=== PATIENT | female | born 1945 | race Caucasian/White ===

== ENCOUNTER 2021-08-26 10:30 | Outpatient (RCR) | payer MEDICARE, OTHER, SELFPAY ==
--- NOTE | 2021-07-22 14:20 | ST.OPIE ---
Visit Care Team Role Provider Type Samir Mooney MD Family Provider Non-Staff Primary Care Provider Specialty: Medical Address: [address] [facility], [place], [address] Email: Gaurav Young MD Attending Provider Non-Staff Referring Provider Specialty: Ear, Nose, Throat Address: [address] [place] [address], [id number] Email: Speech-Language Pathology Initial Evaluation SYNTHETIC FILAMENT EXTRUDER Voice Resonance Evaluation Start: 07/19/21 10:32 Freq: Status: Active Protocol: Document 07/19/21 10:30 LNK (Rec: 07/22/21 13:17 LNK [email or web address]) Voice and Resonance Assessment Session Time Visit Start Time 10:30 Visit Stop Time 11:30 Total Visit Minutes 60 Visit Information Visit Number 1 Plan of Care Dates 07/19/21-10/19/21 Next Note Type Next Note Type Treatment Note Referral Referring Physician Dr Young, ENT Reason for Referral vocal fold paralysis Setting Setting Outpatient Care Patient History General Information Pt was seen for voice evaluation and treatment secondary to left vocal fold paralysis. Pt underwent thyroidectomy in April 2021. Following her surgery, she developed a large hematoma that resulted in left side laryngeal nerve compression. As a result, the pt was aphonic and experienced swallowing problems. Subjective Subjective Pt presented with a voice judged to be relativey normal. According to the pt, she has noticed a significant improvement in her voice over the past 2 weeks. She also reported that her eating and drinking have also improved. Informal observation indicated mild pitch breaks and fatigue as the pt was providing her medical history. - Laryngeal Performance S/Z Ratio S/Z Ratio 1.2 Functional for Speech Yes Reduced Laryngeal Function Relative to mild reduction Respiration CAPE-V Overall Severity 10 Roughness 0 Breathiness 10 Strain 0 Pitch 5 Loudness 10 Normal Resonance? Yes Additional Features Pitch Instability,Tremor Other Features Observed mild s/sx Maximum Phonation Time MPT Norms: Women (15-25) Men (25-35) Loudness (50-60 dB); Speaking Rate: Oral Reading of Sentences (190 Words Per Minute); Oral Reading of Paragraphs (160-170 WPM); Speaking Rate in Conversation (150-250 WPM) Maximum Phonation Time 13.46 Maximum Phonation Time Adequate for Speech,Reduced Jitter/Shimmer Norms: Jitter (Less than or equal to 1.040% - Frequency) Norms: Shimmer (Less than or equal to 3.810% - Amplitude) Jitter 1.08 Shimmer 3.95 Pitch Haswell Pitch Haswell Pitch Breaks,Reduced Range Pitch [place] Comments 61.4-261.4 Hz Muscle Tension Assessment Muscle Tension Assessment None Tongue Base Tension Tongue Base Tension w/ Voicing No Breath Support Breath Support At Rest Abdominal Breath Support Sustained Phonation Mixed Breath Support Sustained Phonation Initial trial was WNL, 2 Comment consecutive trials = reduced duration each Breath Support Conversation Abdominal Breath Support Conversation Comment Appeared to fatigue as evaluation continued Speaks on Room Air Yes Postural Alignment Stance Balanced Voice Pitch Range Norms: Women (100-300 Hz) Men (70-250 Hz) Fundamental Frequency Norms: Women (Mean: 225 Hz; Range: 155-334 Hz) Men ( Mean: 128 Hz; Range: 85-196 Hz) Voice Pitch Normal Voice Loudness Normal Voice Phonatory-based Quality Pitch Breaks Fundamental Frequency 154-188Hz Paradoxical Vocal Fold Movement No Indications Resonance Nasal Resonance Normal Therapeutic Techniques Therapy Tactics Breath Support Other Tactics Glottal adduction exercises Findings Findings Mild Impairment Voice/Resonance Assessment Assessment Pt presented with a mild voice disorder that, per pt report, has improved significantly over the past 2 weeks. Following her thyroidectomy, pt had a large hematom pressing n the left laryngeal nerve that caused temporary paralysis of the left vocal fold. The results noted above as well as pt's report indicate the reduction of the hematoma has enabled healing of the nerve and evangelical of voicing. Adduction exercises were provided to the pt, who demonstrated them in office. It is expected that her voice, with the adduction exercises, will continue to improve to normal. 1-2 sessions are recommended at 3 weeks apart. Prognosis Rehabilitation Potential Excellent - Recommendations Treatment Recommended Yes Treatment Frequency/Duration every 3 weeks x 1-2 sessions Short Term Goals Pt will perform HEP of glottal adduction exercises 3-5 times per day as prescribed Prison Goals Pt's vocal adduction, and therefore voicing, will be WNL . Swallowing will return to normal as well Referrals Voice/Resonance Other Referral Return to Dr. Young as indicated Patient/Caregiver Education Patient/Family Education Described results of evaluation,Patient Understanding,Patient Demonstration
--- NOTE | 2021-08-05 11:03 | ST.OPTN ---
Visit Care Team Role Provider Type Samir Mooney MD Family Provider Non-Staff Primary Care Provider Address: [address] [facility], [place], [address] Gaurav Young MD Attending Provider Non-Staff Referring Provider Address: [facility] Francesco Gonzalezy [address], [address] HOME THERAPY TEACHER Treatment Note HOME THERAPY TEACHER Treatment Note Start: 07/19/21 10:32 Freq: Status: Active Protocol: Document 08/05/21 10:28 LNK (Rec: 08/05/21 11:03 LNK [id number]) Speech Pathology Treatment Note Session Time Visit Start Time 10:30 Visit Stop Time 11:00 Total Visit Minutes 30 Visit Information Visit Number 2 Plan of Care Dates 07/19/21-10/19/21 Setting Treatment Setting Outpatient Care Visit Type Note Type Treatment Note Next Note Type Next Note Type Treatment Note General Information General Information Pt was seen for voice evaluation and treatment secondary to left vocal fold paralysis. Pt initially presented with a mild voice disorder that, per pt report, has improved significantly over the past 2 weeks. Following her thyroidectomy, pt had a large hematoma pressing on the left laryngeal nerve that caused temporary paralysis of the left vocal fold. The results indicated that the reduction of the hematoma has enabled healing of the nerve and latter day of voicing. Adduction exercises were provided to the pt, who demonstrated them in office. It is expected that her voice, with the adduction exercises, will continue to improve to normal. 1-2 sessions are recommended at 3 weeks apart. [ End ] Subjective Identification Type Name,Date of Chief Complaint(s) Voice Patient Knowledge/Awareness of HOME THERAPY TEACHER Role Excellent in Treatment Objective Short Term Goals Pt will perform HEP of glottal adduction exercises 3-5 times per day as prescribed Proposal Specialist Goals Pt's vocal adduction, and therefore voicing, will be WNL . Swallowing will return to normal as well Treatment Activities Pt reported that she recently saw Dr Young for a follow up visit. Per pt, Dr. Young was pleased that the vocal fold that had been paralyzed had improved significantly and was able to adduct, leaving a slight glottal gap. Pt reported that she was doing her exercises and her voice was improving until she caught a bad cold. She reports she has recovered from the cold, but has regressed in her exercises due to coughing. Assessment Impairments Identified Vocal Quality Progress Towards Goals Good Progress Assessment of Overall Progress Improving Assessment of Improvement Pt's voice has improved despite her recent cough. Recommend a follow up appointment again in 3 weeks. Continue daily vocal fold adduction exercises as tolerated. Reviewed with Patient Goals,Progress Being Made,Home Exercise Program Patient/Caregiver Understanding Excellent Plan Amount of Therapy Recommended 1-2 Months Comment 1 appt every 3 weeks Length of Session 45 Minutes Therapeutic Contents Voice Training Provided Patient/Caregiver Instruction Home Exercise Program, Questions/Concerns Therapy Recommendations Continue with Current Program
--- NOTE | 2021-08-26 11:40 | ST.OPTN ---
Visit Care Team Role Provider Type Samir Mooney MD Family Provider Non-Staff Primary Care Provider Address: [address] [facility], [place], [address] Gaurav Young MD Attending Provider Non-Staff Referring Provider Address: [address] [address], [place], [address] SALES ASSISTANT Treatment Note SALES ASSISTANT Treatment Note Start: 07/19/21 10:32 Freq: Status: Active Protocol: Document 08/26/21 11:07 LNK (Rec: 08/26/21 11:24 LNK [email or web address]) Speech Pathology Treatment Note Session Time Visit Start Time 10:30 Visit Stop Time 11:10 Total Visit Minutes 40 Visit Information Visit Number 3 Plan of Care Dates 07/19/21-10/19/21 Setting Treatment Setting Outpatient Care Visit Type Note Type Treatment Note Next Note Type Next Note Type Treatment Note General Information General Information Pt was seen for voice evaluation and treatment secondary to left vocal fold paralysis. Pt initially presented with a mild voice disorder that, per pt report, has improved significantly over the past 2 weeks. Following her thyroidectomy, pt had a large hematoma pressing on the left laryngeal nerve that caused temporary paralysis of the left vocal fold. The results indicated that the reduction of the hematoma has enabled healing of the nerve and protestant of voicing. Adduction exercises were provided to the pt, who demonstrated them in office. It is expected that her voice, with the adduction exercises, will continue to improve to normal. 1-2 sessions are recommended at 3 weeks apart. [ End ] Subjective Identification Type Name,Date of Chief Complaint(s) Voice Patient Knowledge/Awareness of SALES ASSISTANT Role Excellent in Treatment Objective Short Term Goals Pt will perform HEP of glottal adduction exercises 3-5 times per day as prescribed Manager Utilization Goals Pt's vocal adduction, and therefore voicing, will be WNL . Swallowing will return to normal as well Treatment Activities Pt reported that her cold persisted and she saw her PCP, who thought pt was aspirating and instructed her to bend over while coughing. The pt stated that this movement has helped and that she is much better. Pt reported that she continues doing her adduction exercises and she feels her voice is more like me again. She is pleased with her progress and her voice. Jitter/Shimmer/ vocal glide measurements were taken to document progress. Jitter/shimmer values remained WNL. Pitch glide demonstrated greater flexibility and greater pitch range. Pt reported that she does not expend a lot of energy to talk anymore. Overall she is pleased. Assessment Impairments Identified Vocal Quality Progress Towards Goals Goals Met,Appropriate for Discharge Assessment of Overall Progress Improving Assessment of Improvement Pt's vioice has improved and she is pleased with the results. Recommend discharge from ST at this time. Pt encouraged to return to this clinic should her voice change/diminish. Continue daily vocal fold adduction exercises as tolerated. Reviewed with Patient Home Exercise Program Patient/Caregiver Understanding Excellent Plan Amount of Therapy Recommended No Further Therapy Provided Patient/Caregiver Instruction Home Exercise Program, Questions/Concerns Therapy Recommendations Discharge to Home Exercise Program,Discharge from Speech Therapy
--- NOTE | 2021-08-26 11:45 | ST.OPDS ---
Visit Care Team Role Provider Type Samir Mooney MD Family Provider Non-Staff Primary Care Provider Address: [address] [facility], [place], [address] Gaurav Young MD Attending Provider Non-Staff Referring Provider Address: [address] [address], [place], [address] DETONATOR MAKER Treatment Note DETONATOR MAKER Treatment Note Start: 07/19/21 10:32 Freq: Status: Active Protocol: Document 08/26/21 11:07 LNK (Rec: 08/26/21 11:24 LNK [email or web address]) Speech Pathology Treatment Note Session Time Visit Start Time 10:30 Visit Stop Time 11:10 Total Visit Minutes 40 Visit Information Visit Number 3 Plan of Care Dates 07/19/21-10/19/21 Setting Treatment Setting Outpatient Care Visit Type Note Type Discharge Summary Next Note Type Next Note Type Treatment Note General Information General Information Pt was seen for voice evaluation and treatment secondary to left vocal fold paralysis. Pt initially presented with a mild voice disorder that, per pt report, has improved significantly over the past 2 weeks. Following her thyroidectomy, pt had a large hematoma pressing on the left laryngeal nerve that caused temporary paralysis of the left vocal fold. The results indicated that the reduction of the hematoma has enabled healing of the nerve and yazdanism of voicing. Adduction exercises were provided to the pt, who demonstrated them in office. It is expected that her voice, with the adduction exercises, will continue to improve to normal. 1-2 sessions are recommended at 3 weeks apart. [ End ] Subjective Identification Type Name,Date of Chief Complaint(s) Voice Patient Knowledge/Awareness of DETONATOR MAKER Role Excellent in Treatment Objective Short Term Goals Pt will perform HEP of glottal adduction exercises 3-5 times per day as prescribed [employer] Goals Pt's vocal adduction, and therefore voicing, will be WNL . Swallowing will return to normal as well Treatment Activities Pt reported that her cold persisted and she saw her PCP, who thought pt was aspirating and instructed her to bend over while coughing. The pt stated that this movement has helped and that she is much better. Pt reported that she continues doing her adduction exercises and she feels her voice is more like me again. She is pleased with her progress and her voice. Jitter/Shimmer/ vocal glide measurements were taken to document progress. Jitter/shimmer values remained WNL. Pitch glide demonstrated greater flexibility and increased pitch range. Pt reported that she does not expend a lot of energy to talk anymore. Overall she is pleased. Assessment Impairments Identified Vocal Quality Progress Towards Goals Goals Met,Appropriate for Discharge Assessment of Overall Progress Improving Assessment of Improvement Pt's voice has improved and she is pleased with the results. Recommend discharge from ST at this time. Pt encouraged to return to this clinic should her voice change/diminish. Continue daily vocal fold adduction exercises as tolerated. Reviewed with Patient Home Exercise Program Patient/Caregiver Understanding Excellent Plan Amount of Therapy Recommended No Further Therapy Provided Patient/Caregiver Instruction Home Exercise Program, Questions/Concerns Therapy Recommendations Discharge to Home Exercise Program,Discharge from Speech Therapy
== END 2021-11-19 09:39 ==
LOC: SP 10:30
PROVIDERS: Family Provider Family Medicine; PCP Family Medicine; Referring Provider Specialist; Visit Provider Specialist
DX: J38.01 Paralysis of vocal cords and larynx, unilateral (principal)
CPT/HCPCS: 92507; 92520; 92524